=== PATIENT | female | born 1945 | race Caucasian/White ===

== ENCOUNTER → 2024-10-22 | Outpatient (CLI) | payer MEDICARE, BC ==
[~2024-10-22] MED LIST: ALBU4TAB6 MT; CYM20 MT; DOCU250C14 MT; GABA-1180 MT; LEVO88TA36 PO; LOSA50TA41 MT; METF-1150 MT; MONT-39 PO; PSYL0.4C2 MT; ROSU40TA MT
== END | disposition home or self-care (01) ==
LOC: RAD 09:36
DX: S52.022A Displaced fracture of olecranon process without intraarticular extension of left ulna, initial encounter for closed fracture (principal); X58.XXXA Exposure to other specified factors, initial encounter; Y93.89 Activity, other specified; Y92.89 Other specified places as the place of occurrence of the external cause; Y99.8 Other external cause status
CPT/HCPCS: 73080